=== PATIENT | female | born 1975 | race Caucasian/White ===

== ENCOUNTER 2024-03-19 14:46 | Observation (INO) ==
--- NOTE | 2024-03-19 16:15 | Emergency Department Note ---
History of Present Illness General Chief complaint: Dental/Oral Stated complaint: SWOLLEN JAW, HEADACHE Time Seen by Provider: 03/19/24 16:00 History of Present Illness Maximum Pain Intensity: 10 NAME: RAZIA RAMOS AGE: 48 SEX: F : 1975 ARRIVES VIA: Walk-In INFORMANT: Patient ED PROVIDER(S): BLESSING Valles, Zenon Pollock MD The patient is a 48-year-old female who arrives to the emergency department for evaluation of right lower tooth pain. She was seen here yesterday in the emergency department, and provided oral pain medication, as well as oral clindamycin. The patient reports a penicillin allergy. She reports the pain has worsened, and she has new swelling of her lower right side of her face. She states the pain is so severe it is not tolerable at this time. She is concerned the infection is not associated with her tooth at this time due to the severe pain and increase in swelling. She denies any difficulty with swallowing, however, no has cervical lymphadenopathy present.. She denies fever, chest pain, shortness of breath. Home Medications Medication Instructions Recorded Confirmed Type clindamycin HCl 300 mg capsule 300 mg PO TID 7 days #21 caps 03/19/24 03/19/24 Rx Allergies Allergy/AdvReac Type Severity Reaction Status Date / Time bee venom protein (honey bee) Allergy Unknown Verified 03/19/24 19:38 ketorolac [From Toradol] Allergy Hives Verified 03/19/24 19:27 latex Allergy Anaphylaxis Verified 03/19/24 19:27 Penicillins Allergy Unknown Verified 03/19/24 19:27 Past Med/Surg History Problem List (Updated 03/19/24 @ 22:59 by BLESSING Perez) Dental abscess (Acute) Cellulitis of jaw, right Abscess, jaw Pain of molar (Acute) Right facial pain (Acute) Medical History No pertinent past medical history Social History Smoking Status: Former smoker Tobacco Type: Cigarettes Preferred Language: Setswana Feels Safe at Home: Yes Physical Exam Vital Signs Vital Signs - 24 hr 03/19/24 15:03 03/19/24 17:00 Temperature 36.7 C Temperature Source Temporal Artery Scan Pulse Rate 101 H Pulse Rate [Finger] 80 Respiratory Rate 20 Respiratory Effort / Characteristics Non-Labored Spontaneous Respiratory Depth Normal Respiratory Pattern Regular Blood Pressure 140/89 Blood Pressure [Right Arm] 153/107 H Blood Pressure Mean 106 Blood Pressure Mean [Right Arm] 122 Blood Pressure Position Sitting Pulse Oximetry 97 95 Oxygen Delivery Method Room Air Room Air Sepsis Recent Fever Within 48 Hours No Sepsis New/Unexplained Change in Mental Status N/A Sepsis Action Taken by Nursing No Action Required VITALS: Vitals are noted on the nurse's note and reviewed by myself. Vital signs stable. GENERAL: 48-year-old female, in no acute distress, nondiaphoretic, well- developed well-nourished. SKIN: The skin was without rashes, erythema, edema, or bruising. HEAD: Right lower facial edema extending below the right jaw. EYES: Pupils equal round and reactive to light and accommodation. MOUTH: Mucous membranes moist. Poor dentition, pharynx without erythema or exudate. Uvula midline. Airway patent. Tongue does not deviate. Erythema/edema to the right lower abdominal below tooth number 30. NECK: Supple without nuchal rigidity. Right cervical lymphadenopathy, no thyromegaly. HEART: Regular rate and rhythm without murmurs gallops or rubs. LUNGS: Clear to auscultation bilaterally without wheezes, rales or rhonchi. No retractions or accessory muscle use. NEURO: Patient was alert and oriented to person place and time. No focal neurological deficits. Course Administered Medications Hydromorphone HCl (Hydromorphone Inj 1 Mg/Ml Syringe) 1 mg IV Q4H PRN PRN Reason: Pain(5+) Stop: 04/02/24 20:29 Last Admin: 03/19/24 20:53 Dose: 1 mg Documented By: STEPAN Discontinued Medications Hydromorphone HCl (Hydromorphone Inj 0.5 Mg/0.5 Ml Syr) 0.5 mg IV NOW STA Stop: 03/19/24 19:00 Last Admin: 03/19/24 19:23 Dose: 0.5 mg Documented By: STEPAN Clindamycin Phosphate (Cleocin/D5w) 900 mg in 50 mls @ 100 mls/hr IV NOW ONE Stop: 03/19/24 16:44 Last Infusion: 03/19/24 18:21 Dose: Infused Documented By: Admin: 03/19/24 17:14 Dose: 100 mls/hr Documented By: ESTER Lactated Ringer's (Lr) 1,000 mls @ 999 mls/hr IV .Q1H1M ONE Stop: 03/19/24 20:17 Last Infusion: 03/19/24 23:04 Dose: Infused Documented By: Admin: 03/19/24 19:36 Dose: 999 mls/hr Documented By: STEPAN Ceftriaxone Sodium (Rocephin) 2,000 mg in 50 mls @ 100 mls/hr IV NOW STA Stop: 03/19/24 19:59 Last Infusion: 03/19/24 23:04 Dose: Infused Documented By: Admin: 03/19/24 20:51 Dose: 100 mls/hr Documented By: STEPAN Acetaminophen (Ofirmev) 1,000 mg in 100 mls @ 400 mls/hr IV NOW STA Stop: 03/19/24 19:46 Last Infusion: 03/19/24 20:59 Dose: Infused Documented By: Admin: 03/19/24 20:02 Dose: 400 mls/hr Documented By: STEPAN Ioversol (Optiray 320 100ml) 92 ml IV ONCE ONE Stop: 03/19/24 17:55 Last Admin: 03/19/24 17:55 Dose: 92 ml Documented By: JT Morphine Sulfate (Morphine Sulfate 4 Mg/Ml 1 Ml Carp\Vial) 4 mg IV NOW STA Stop: 03/19/24 16:16 Last Admin: 03/19/24 16:38 Dose: 4 mg Documented By: TORRI Morphine Sulfate (Morphine Sulfate 4 Mg/Ml 1 Ml Carp\Vial) 4 mg IV NOW STA Stop: 03/19/24 17:19 Last Admin: 03/19/24 17:21 Dose: 4 mg Documented By: ESTER Morphine Sulfate (Morphine Sulfate 4 Mg/Ml 1 Ml Carp\Vial) 4 mg IV NOW STA Stop: 03/19/24 18:25 Last Admin: 03/19/24 18:44 Dose: 4 mg Documented By: ESTER Ondansetron HCl (Ondansetron Inj 2 Mg/Ml 2 Ml Vial) 4 mg IV NOW STA Stop: 03/19/24 16:16 Last Admin: 03/19/24 16:38 Dose: 4 mg Documented By: TORRI Ondansetron HCl (Ondansetron Inj 2 Mg/Ml 2 Ml Vial) 4 mg IV NOW STA Stop: 03/19/24 19:21 Last Admin: 03/19/24 19:23 Dose: 4 mg Documented By: STEPAN Ondansetron HCl (Ondansetron Inj 2 Mg/Ml 2 Ml Vial) 4 mg IV NOW STA Stop: 03/19/24 19:21 Last Admin: 03/19/24 19:21 Dose: Not Given Documented By: STEPAN Medical Decision Making Differential Diagnosis Dental caries, dental abscess, Ludwigs angina, Vincent angina, dental fracture, facial cellulitis, parotitis, osteomyelitis, sinus infection, peritonsillar abscess. Medical Records Attestation: I reviewed the patient's medical records. Home Medications Current Medication List: was personally reviewed by me Laboratory Data Attestation: I reviewed the patient's lab results. Leukocytosis 11.29, stable hemoglobin and hematocrit, no electrolyte abnormalities. 03/19/24 16:35 03/19/24 16:35 Lab Results 03/19/24 Range/Units 16:35 WBC 11.29 H (4.8-10.8) K/ul RBC 5.08 (4.20-5.40) M/uL Hgb 14.9 (12.0-16.0) g/dl Hct 45.0 (37.0-47.0) % MCV 88.6 (80.0-100.0) fL MCH 29.3 (25.0-34.0) pg MCHC 33.1 (32.0-36.0) g/dL RDW Std Deviation 42.6 (36.4-46.3) fL RDW Coeff of Reyna 13.0 (11.5-14.5) % Plt Count 261 (130-400) K/uL MPV 10.0 (9.4-12.4) fL Immature Gran % (Auto) 0.4 % Neut % (Auto) 73.1 % Lymph % (Auto) 17.1 % Kendall % (Auto) 7.7 % Eos % (Auto) 1.3 % Baso % (Auto) 0.4 % Neut # (Auto) 8.25 H (1.40-6.50) K/uL Lymph # (Auto) 1.93 (1.20-3.40) K/uL Kendall # (Auto) 0.87 H (0.11-0.59) K/uL Eos # (Auto) 0.15 (0.00-0.50) K/uL Baso # (Auto) 0.05 (0.00-0.20) K/uL Immature Gran # (Auto) 0.04 (0.01-0.20) K/uL ESR 37 H (0-20) mm/hr Sodium 137 (136-145) mmol/L Potassium 4.0 (3.5-5.1) mmol/L Chloride 106 (98-107) mmol/L Carbon Dioxide 24 (21-32) mmol/L Anion Gap 7 (3-11) BUN 13 (6-23) mg/dl Creatinine 0.73 (0.6-1.2) mg/dl Est Cr Clr Drug Dosing 102.3 ml/min Est GFR ( Amer) 112.1 ml/min Est GFR (Non-Af Amer) 96.7 ml/min BUN/Creatinine Ratio 17.8 (10-20) Glucose 97 (70-99(Fasting)) mg/dl Calcium 9.4 (8.6-10.3) mg/dl Total Bilirubin 0.7 (0.2-1.0) mg/dl AST 11 L (13-39) U/L ALT 9 (7-52) U/L Alkaline Phosphatase 69 (34-104) U/L C-Reactive Protein 0.74 H (0-0.5) mg/dl Total Protein 7.2 (6.0-8.3) gm/dl Albumin 4.1 (3.4-5.0) gm/dl Globulin 3.1 (2.5-4.0) gm/dl Albumin/Globulin Ratio 1.3 (0.9-2) Procalcitonin < 0.02 (0-0.5) ng/ml Imaging Data Radiologist's Impression: Soft Tissue Neck CT 03/19/24 16:15 CT soft tissue neck w con HISTORY: 48 years-old Female r/o abscess acute pain and swelling of the face with possible dental infection COMPARISON: None TECHNIQUE: Multiple axial CT images of the soft tissues of the neck were obtained with IV contrast. A dose lowering technique was used consistent with the principals of MARIA GUADALUPE. FINDINGS: Moderate subcutaneous edema within the right mandibular tissues centered around a 1.2 x 0.2 cm peripherally enhancing abscess abutting the right mandibular body on image 39 series 2. No drainable fluid collections. Reactive submandibular and cervical chain lymph nodes on the right measure up to 10 mm. Patent airway. Antral fat planes are symmetric and well-maintained. Normal glottis and subglottic airway. Thyroid, parotid and submandibular glands are unremarkable. The imaged intracranial structures are within normal limits. Lung apices are clear without pneumothorax. No acute fracture. Dental caries with periapical cysts. There is mild lateral cortical dehiscence of the right mandible body adjacent to the right first mandibular molar. IMPRESSION: 1. Multifocal odontogenic disease. 2. Right facial/jaw cellulitis with 1.2 cm abscess. 3. Mild reactive lymphadenopathy. ACT 112: Negative or not required by law. The above report was generated using voice recognition software. It may contain grammatical, syntax or spelling errors. Electronically signed by: Brendan Ramos M.D. 03/19/2024 6:38 PM Prescription Drug Monitoring [place] Drug Monitoring Program reviewed and no issues identified Blood Pressure Blood Pressure Findings: Normal blood pressure MDM Narrative The patient is a 48-year-old female who arrives to the emergency department for the above-stated complaint. Upon assessment the patient has significant pain, and is tearful. I do believe she has a developing abscess associated with tooth #30. A saline lock was placed, CBC, CMP were obtained which showed a slight leukocytosis. The patient was provided with 3 doses of IV morphine, 2 doses of Zofran, and 1 dose of IV Dilaudid which were unsuccessful in controlling her pain. CT imaging shows a 1.2 cm developing dental abscess. I contacted Dr. Wilkerson regarding the patient, he will evaluate the CT, and place the patient on his list for surgical intervention tomorrow. Case management was contacted to facilitate hospital admission. The patient was admitted to the [facility]. Please refer to Dr. Torres's documentation regarding further patient care. Impression & Plan Right facial pain, Dental abscess Discharge Plan Visit Data Chief Complaint: Dental/Oral Stated Complaint: SWOLLEN JAW, HEADACHE ED Provider: Zenon Pollock ED Midlevel Provider: Dori Leiva Discharge Problem: Right facial pain, Dental abscess Patient Disposition: Admitted As Inpatient Discharge Instructions Interventions: ED Discharge Assessment Last Done: 03/19/24 21:14
[2024-03-19] MEDS: MoRPHine SULFATE 4 MG/ML 1 ML CARP\\VIAL IV STA ×3 (16:38→18:44)
[2024-03-19] MEDS: ONDANSETRON INJ 2 MG/ML 2 ML VIAL IV STA ×3 (16:38→19:23)
[2024-03-19 16:49] LABS: Basophils # (auto) 0.05 K/uL (0.00-0.20); Basophils % (auto) 0.4 %; Eosinophils # (auto) 0.15 K/uL (0.00-0.50); Eosinophils % (auto) 1.3 %; Hemoglobin 14.9 g/dl (12.0-16.0); Immature Granulocytes # (auto) 0.04 K/uL (0.01-0.20); Immature Granulocytes % (auto) 0.4 %; Lymphocytes # (auto) 1.93 K/uL (1.20-3.40); Lymphocytes % (auto) 17.1 %; Mean Corpuscular Hemoglobin 29.3 pg (25.0-34.0); Mean Corpuscular Hgb Conc 33.1 g/dL (32.0-36.0); Mean Corpuscular Volume 88.6 fL (80.0-100.0); Monocytes # (auto) 0.87 K/uL (0.11-0.59); Monocytes % (auto) 7.7 %; Neutrophils # (auto) 8.25 K/uL (1.40-6.50); Neutrophils % (auto) 73.1 %; Platelet Count 261 K/uL (130-400); RDW Standard Deviation 42.6 fL (36.4-46.3); Red Blood Count 5.08 M/uL (4.20-5.40); White Blood Count 11.29 K/ul (4.8-10.8)
[2024-03-19 17:07] LABS: Albumin Globulin Ratio 1.3 (0.9-2); Albumin Level 4.1 gm/dl (3.4-5.0); BUN Creatinine Ratio 17.8 (10-20); Bilirubin,Total 0.7 mg/dl (0.2-1.0); Calcium 9.4 mg/dl (8.6-10.3); Creatinine Clr Calc Pharmacy 102.3 ml/min; Est GFR (African American) 112.1 ml/min; Est GFR (Non-African American) 96.7 ml/min; Globulin 3.1 gm/dl (2.5-4.0); Total Protein 7.2 gm/dl (6.0-8.3)
[2024-03-19] MEDS: CLINDAMYCIN/D5W 900 MG/50 ML BAG IV ONE (17:14)
[2024-03-19] MEDS: OPTIRAY 320 100ml IV ONE (17:55)
--- NOTE | 2024-03-19 18:41 | CT Scan Report ---
CT soft tissue neck w con HISTORY: 48 years-old Female r/o abscess acute pain and swelling of the face with possible dental in fection COMPARISON: None TECHNIQUE: Multiple axial CT images of the soft tissues of the neck were obtained with IV contrast. A dose lowering technique was used consistent with the principals of MARIA GUADALUPE. FINDINGS: Moderate subcutaneous edema within the right mandibular tissues centered around a 1.2 x 0.2 cm periph erally enhancing abscess abutting the right mandibular body on image 39 series 2. No drainable fluid collections. Reactive submandibular and cervical chain lymph nodes on the right measure up to 10 mm. Patent airway. Antral fat planes are symmetric and well-maintained. Normal glottis and subglottic airway. Thyroid, p arotid and submandibular glands are unremarkable. The imaged intracranial structures are within aleksandr l limits. Lung apices are clear without pneumothorax. No acute fracture. Dental caries with periapica l cysts. There is mild lateral cortical dehiscence of the right mandible body adjacent to the right f irst mandibular molar. IMPRESSION: 1. Multifocal odontogenic disease. 2. Right facial/jaw cellulitis with 1.2 cm abscess. 3. Mild reactive lymphadenopathy. ACT 112: Negative or not required by law. The above report was generated using voice recognition software. It may contain grammatical, syntax o r spelling errors. Electronically signed by: Brendan Ramos M.D. 03/19/2024 6:38 PM
--- NOTE | 2024-03-19 19:13 | History & Physical Report ---
Date of Service March 19, 2024 Assessment & Plan (1) Abscess, jaw: Plan: -Admit to the PCU on tele/pulse oximetry -Currently in significant pain but stable and without airway compromise at the time of the exam -Initially presented to the ED early this am with right lower tooth/jaw pain -Was discharged on oral clindamycin -Returned this afternoon with significant increase in swelling, pain, and poor oral intake -Soft tissue CT of the neck was read as Multifocal odontogenic disease, Right facial/jaw cellulitis with 1.2 cm abscess, and Mild reactive lymphadenopathy. -Patient is currently able to safely swallow her secretions, denies the sensation that her airway is swelling/closing, and is without stridor -S/P one dose of IV Clindamycin in the ED >Will continue with Clindamycin and add on Ceftriaxone as well -Will obtain stat blood cultures, esr, crp, and procal with her leukocytosis and progressive of her infection -Will continue with scheduled tylenol, prn ice, and PRN IV dilaudid for severe pain -Patient was instructed multiple times by the admitting team to alert her nurse if she starts to develop an inability to swallow secretions, feels as though her throat is closing, or develops respiratory distress. >The patient verbalized understanding -PRN Narcan for oversedation/respiratory depression -ENT has been consulted and is planning on taking the patient to the OR tomorrow for surgical intervention -Clear liquids until midnight then strict NPO -Will give 1L LR bolus now and start maintenance plasmalyte when NPO at midnight -AM CBC, CMP, mag, PT/INR (2) Cellulitis of jaw, right: Plan: -See jaw abscess plan Plan The patient was discussed with Dr. Torres at the time of the admission History of Present Illness Chief Complaint: Worsening tooth/jaw pain Primary Care Provider: SUSIE PCP Jami is a 48 year old female with no significant PMH who presented to the [facility] ED on 03/19/24 for a second time in the past 12 hours with complaints of progressive right lower jaw pain. She was initially seen in the [facility] ED on early this am and was prescribed PO Clindamycin. She remained stable in the ED. Labs were significant for a leukocytosis of 11 with neutrophil predominance of 8. CT soft tissue of the neck w/con was read as "1. Multifocal odontogenic disease. 2. Right facial/jaw cellulitis with 1.2 cm abscess. 3. Mild reactive ly mphadenopathy.". The patient was given a dose of IV clindamycin. The ED spoke with ENT who recommended making the patient NPO at midnight in preparation for the OR tomorrow. Prior to admission the patient was given 3 doses of 4 mg IV morphine, 0.5 mg IV Dilaudid, and one dose of IV Clindamycin. At the time of the exam the patient was sitting in bed in acute distress due to pain. She currently has significant right jaw/submandibular swelling. She states that her pain is severe. She states that the swelling has significantly progressed compared to her first ED visit this am. When asked, she confirms that she is able to swallow her secretions and denies feeling as though her throat is closing or that she is unable to breathe. She is without stridor on exam. Denies fever, chills, chest pain, SOB, cough, abd pain, nausea, vomiting, diarrhea, dysuria, hematuria, melena, LE swelling, and recent trauma. I explained that Dr. Wilkerson from ENT will see her in the am and will likely be taking her to the OR for I&D. Please refer to Dr. Hyde's attestation for any changes to the treatemnt plan Allergies Allergy/AdvReac Type Severity Reaction Status Date / Time bee venom protein (honey bee) Allergy Unknown Verified 03/20/24 13:22 ketorolac [From Toradol] Allergy Hives Verified 03/20/24 13:22 latex Allergy Anaphylaxis Verified 03/20/24 13:22 Penicillins Allergy Unknown Verified 03/20/24 13:22 Home Medications Medication Instructions Recorded Confirmed Type hydrocodone 5 mg-acetaminophen 325 1 tab PO Q4H PRN pain #14 tabs 03/21/24 Rx mg tablet Past Med/Surg History Problem List (Updated 03/21/24 @ 13:04 by Veronica Levin MD) Encounter for pre-operative examination Cellulitis of jaw, right Pain of molar (Acute) Right facial pain (Acute) Medical History (Updated 03/21/24 @ 13:04 by Veronica Levin MD) Dental abscess Abscess, jaw History of kidney infection PTSD (post-traumatic stress disorder) Depressed Heart palpitations Surgical History (Updated 03/21/24 @ 11:17 by Rosanna Baeza RN) Hx of oral surgery (03/20/24) p Right Face Incision and Drainage of submandibular right abcess(Right) - Yoandy Wilkerson DMD s Extraction of Teeth #16, 30, 31(Not Applicable) - Yoandy Wilkerson DMD History of appendectomy History of hysterectomy Social History Smoking Status: Current every day smoker Tobacco Type: Cigarettes Cigarettes Per Day: 4; Hx Alcohol Use: No Hx Substance Use: Yes Last Used Substance: Unknown Preferred Language: Lao Communication Ability: Effective Beliefs That Will Affect Care: None Current Living Situation: Other Current Living Situation Comment: Homeless custodial Feels Safe at Home: Yes Assistive Devices: None Physical Exam Physical Exam: Physical Exam: General: In acute distress due to significant pain, stated age, ill but non- toxic appearing HEENT: significant right jaw/submandibular swelling which is significantly tender to palpation, decreased ability to fully open jaw due to pain, oropharynx is patent and without unilateral deviation/swelling, patient with signs of gingivitis/swelling/inflammation of the right lower molars, no scleral icterus, pupils around round, symmetrical, and reactive to light, moist mucus membranes, poor dental hygiene, trachea midline, no thyromegaly Chest/Pulm: No respiratory distress, symmetrical chest expansion, clear breath sounds throughout Cardiac: tachycardic rate, regular rhythm, no murmurs noted Abdomen: Negative for ascites and bruising, normoactive bowel sounds, soft, non-tender to palpation throughout Musculoskeletal: Symmetrical and without signs of acute trauma, upper and lower extremities with full ROM, no atrophy, spasticity, or flaccidity Extremities: Radial, dorsalis pedis, and posterior tibial pulses are intact and symmetrical, no edema noted in the BL LE's Skin: Warm, dry, no rashes , lesions, or scars noted Neuro: Alert and oriented to person, place, month, year, and president, no focal defects, no tremors noted Psych: In acute distress due to pain but polite and cooperative during the exam Results & Data Results & Data Vital Signs (Past 12 Hours) Vital Signs Temp Pulse Pulse Resp BP BP Pulse Ox 03/19/24 17:00 80 153/107 H 95 03/19/24 15:03 36.7 C 101 H 20 140/89 97 O2 Del Method 05/19/24 17:00 Room Air 03/19/24 15:03 Room Air Laboratory Results Abnormal lab results 03/19/24 Range/Units 16:35 WBC 11.29 H (4.8-10.8) K/ul Neut # (Auto) 8.25 H (1.40-6.50) K/uL Grayson # (Auto) 0.87 H (0.11-0.59) K/uL ESR 37 H (0-20) mm/hr AST 11 L (13-39) U/L Diagnostic Findings Soft Tissue Neck CT 03/19/24 16:15 CT soft tissue neck w con HISTORY: 48 years-old Female r/o abscess acute pain and swelling of the face w ith possible dental infection COMPARISON: None TECHNIQUE: Multiple axial CT images of the soft tissues of the neck were obtained with IV contrast. A dose lowering technique was used consistent with the principals of ALARA. FINDINGS: Moderate subcutaneous edema within the right mandibular tissues centered around a 1.2 x 0.2 cm peripherally enhancing abscess abutting the right mandibular body on image 39 series 2. No drainable fluid collections. Reactive submandibular and cervical chain lymph nodes on the right measure up to 10 mm. Patent airway. Antral fat planes are symmetric and well-maintained. Normal glottis and subglottic airway. Thyroid, parotid and submandibular glands are unremarkable. The imaged intracranial structures are within normal limits. Lung apices are clear without pneumothorax. No acute fracture. Dental caries with periapical cysts. There is mild lateral cortical dehiscence of the right mandible body adjacent to the right first mandibular molar. IMPRESSION: 1. Multifocal odontogenic disease. 2. Right facial/jaw cellulitis with 1.2 cm abscess. 3. Mild reactive lymphadenopathy. ACT 112: Negative or not required by law. The above report was generated using voice recognition software. It may contain grammatical, syntax or spelling errors. Electronically signed by: Brendan Ramos M.D. 03/19/2024 6:38 PM ECG Additional Comments: Will obtain at the time of the admission Code Status & VTE Plan Code Status Full code VTE Prophylaxis Plan VTE Prophylaxis will be ordered: Yes Supervising Physician Co-Signing Physician Notes Attending addendum: I have physically seen this patient, have supervised the BRITNEY's activities, and agree with the H&P unless as otherwise noted. Assessment and Plan: Right facial jaw abscess/cellulitis- CT soft tissue of the neck 1.2 cm abscess NPO IV fluids as noted Patient able to clear secretions without a problem Ceftriaxone 2 g IV daily Clindamycin 90 mg IV every 8 hours Allergies noted to penicillin Follow blood culture and sensitivities Acetaminophen 1 g IV every 8 hours as needed for mild pain or fever Dilaudid 0.25 mg IV every 3 hours as needed for moderate to severe pain Repeat CBC with differential, CMP, magnesium and PT/INR in the a.m. Patient will be seen by [facility] Dr. Wilkerson PG Care Time/CCT Total # of Minutes Spent Total Time Spent with Patient: Total time spent is greater than 50% in coordination of care (as documented) at patient's floor/unit and/or counseling patient: [place] [address] INT INP/OBS CARE 2/55MIN Patient Type New Medical Decision Making High Complexity Diagnoses Abscess, jaw M27.2 Cellulitis of jaw, right L03.211
[2024-03-19] MEDS: HYDROmorphone INJ 0.5 MG/0.5 ML SYR IV STA ×2 (19:23→23:23)
[2024-03-19] MEDS ORDERED: Patient's ALLERGY Info needs ENTERED SCH (19:30)
[2024-03-19] MEDS ORDERED: NALOXONE HCL 0.4 MG/1 ML VIAL/CARP IV PRN (19:34)
[2024-03-19] MEDS: LACTATED RINGER'S 1,000 ML IV ONE (19:36)
[2024-03-19] MEDS ORDERED: ONDANSETRON INJ 2 MG/ML 2 ML VIAL IV PRN (19:38)
[2024-03-19] MEDS: ACETAMINOPHEN 1,000 MG/100 ML VIAL IV STA (20:02)
[2024-03-19 20:41] LABS: C Reactive Protein 0.74 mg/dl (0-0.5)
[2024-03-19] MEDS: cefTRIAXone SODIUM 2,000 MG/50 ML BAG IV STA (20:51)
[2024-03-19] MEDS: HYDROmorphone INJ 1 MG/ML SYRINGE IV PRN (20:53)
[2024-03-19] MEDS: PLASMA-LYTE A 1,000 ML IV SCH (23:23)
[2024-03-20] MEDS: CLINDAMYCIN/D5W 900 MG/50 ML BAG IV SCH (00:59)
[2024-03-20] MEDS: ACETAMINOPHEN 1,000 MG/100 ML VIAL IV SCH (03:16)
[2024-03-20 07:41] LABS: Basophils # (auto) 0.04 K/uL (0.00-0.20); Basophils % (auto) 0.5 %; Eosinophils # (auto) 0.11 K/uL (0.00-0.50); Eosinophils % (auto) 1.2 %; Hematocrit (blood only) 40.7 % (37.0-47.0); Hemoglobin 13.2 g/dl (12.0-16.0); Immature Granulocytes # (auto) 0.03 K/uL (0.01-0.20); Immature Granulocytes % (auto) 0.3 %; Lymphocytes # (auto) 1.52 K/uL (1.20-3.40); Lymphocytes % (auto) 17.1 %; Mean Corpuscular Hemoglobin 29.3 pg (25.0-34.0); Mean Corpuscular Hgb Conc 32.4 g/dL (32.0-36.0); Mean Corpuscular Volume 90.4 fL (80.0-100.0); Mean Platelet Volume 10.3 fL (9.4-12.4); Monocytes # (auto) 0.63 K/uL (0.11-0.59); Monocytes % (auto) 7.1 %; Neutrophils # (auto) 6.55 K/uL (1.40-6.50); Neutrophils % (auto) 73.8 %; Platelet Count 205 K/uL (130-400); RDW Coefficient of Variation 13.2 % (11.5-14.5); RDW Standard Deviation 43.7 fL (36.4-46.3); White Blood Count 8.88 K/ul (4.8-10.8)
[2024-03-20 07:56] LABS: Albumin Globulin Ratio 1.2 (0.9-2); Albumin Level 3.5 gm/dl (3.4-5.0); BUN Creatinine Ratio 12.2 (10-20); Bilirubin,Total 0.8 mg/dl (0.2-1.0); Calcium 8.7 mg/dl (8.6-10.3); Creatinine Clr Calc Pharmacy 101.2 ml/min; Est GFR (African American) 110.3 ml/min; Est GFR (Non-African American) 95.1 ml/min; Magnesium 1.9 mg/dl (1.7-2.4); Potassium 4.4 mmol/L (3.5-5.1); Total Protein 6.5 gm/dl (6.0-8.3)
[2024-03-20 08:07] LABS: Prothrombin Time 10.7 Seconds (9.0-12.0)
--- NOTE | 2024-03-20 08:53 | Oral/Maxillofacial Consult ---
Date of Consultation March 20, 2024 Assessment & Plan (1) Dental abscess: (2) Cellulitis of jaw, right: (3) Abscess, jaw: (4) Pain of molar: (5) Right facial pain: History of Present Illness Attending Physician: Veronica Levin MD History of Present Illness Oral Maxillofacial Surgery Exam Present Complaint: I have pain/swelling/drainage from my infected teeth. Symptoms have been ongoing for a while. The patient is a 48-year-old female who arrives to the emergency department for evaluation of right lower tooth pain. She was seen here yesterday in the emergency department, and provided oral pain medication, as well as oral clindamycin. The patient reports a penicillin allergy. She reports the pain has worsened, and she has new swelling of her lower right side of her face. She states the pain is so severe it is not tolerable at this time. She is concerned the infection is not associated with her tooth at this time due to the severe pain and increase in swelling. She denies any difficulty with swallowing, however, no has cervical lymphadenopathy present.. She denies fever, chest pain, shortness of breath. Admitted for pain and infection control Dr Wilkerson consulted Oral Exam: Finding-Grossly carious lower right first and second molars with cortical radiolucencies Imaging: CT soft tissue neck w con HISTORY: 48 years-old Female r/o abscess acute pain and swelling of the face with possible dental infection FINDINGS: Moderate subcutaneous edema within the right mandibular tissues centered around a 1.2 x 0.2 cm peripherally enhancing abscess abutting the right mandibular body on image 39 series 2. No drainable fluid collections. Reactive submandibular and cervical chain lymph nodes on the right measure up to 10 mm. Patent airway. Antral fat planes are symmetric and well-maintained. Normal glottis and subglottic airway. Thyroid, parotid and submandibular glands are unremarkable. The imaged intracranial structures are within normal limits. Lung apices are clear without pneumothorax. No acute fracture. Dental caries with periapical cysts. There is mild lateral cortical dehiscence of the right mandible body adjacent to the right first mandibular molar. IMPRESSION: 1. Multifocal odontogenic disease. 2. Right facial/jaw cellulitis with 1.2 cm abscess. 3. Mild reactive lymphadenopathy. Soft tissue: The floor of the mouth, tongue, hard/soft palate, posterior pharyngeal area all with in normal limits, no pathology or abnormal findings noted. Swelling associated with the submandibular and masseter space Swelling upper left area due to fractured tooth with local infection and pain Oral Care: Fair Occlusion: Class I TMJ exam: Due to limited opening not able to determine Periodontal exam: Inflamed gingival tissue with evidence of periodontal pathology. Head/Neck exam: Neck is supple, FROM, Able to extend and flex neck w/o difficulty, no masses, no abnormalities other then the infection causing swelling to the right submandibular area and cheek, no airway issues. Treatment Plan: I&D right submandibular abscess and extraction of 30,31 I&D of local abscess #upper left area and fractured # 16 Set up with general anesthesia in hospital due to complexity of the procedure I reviewed the treatment plan and consent with the patient. Understanding was expressed. Time was given for questions regarding the surgery, risks and post op care. Discussed alternative to treatment--procedure as planned-no other options due to decay The following teeth are decayed and fractured and removal is indicated CHERISE: Risks discussed: Bleeding,Pain,swelling,infection, dry socket, delayed healing, nerve injury to face,lips,tongue,chin area which could be permanent (rare). TMJ, jaw stiffness, change in bite (rare), ear pain (referred). Sinus problems like fistula or infection. Need to leave a small root fragment in place to avoid injury to nerve or sinus. Relationship of wisdom teeth to nerve/sinus and risk of jaw fracture. Home care reviewed: follow up care with Dr Wilkerson. diet=[id number] dental. need to establish routine dental care for treatment and prevention Discussed activity level, driving/work while on Rx pain Meds. Surgery to be set up for I&D and extractions 16,30,31 later today Allergies Allergy/AdvReac Type Severity Reaction Status Date / Time bee venom protein (honey bee) Allergy Unknown Verified 03/19/24 19:38 ketorolac [From Toradol] Allergy Hives Verified 03/19/24 19:27 latex Allergy Anaphylaxis Verified 03/19/24 19:27 Penicillins Allergy Unknown Verified 03/19/24 19:27 Home Medications Medication Instructions Recorded Confirmed Type clindamycin HCl 300 mg capsule 300 mg PO TID 7 days #21 caps 03/19/24 03/19/24 Rx Patient History Medical History No pertinent past medical history Social History Smoking Status: Current every day smoker Tobacco Type: Cigarettes Cigarettes Per Day: 4; Hx Alcohol Use: No Hx Substance Use: Yes Last Used Substance: Unknown Preferred Language: Haitian Communication Ability: Effective Beliefs That Will Affect Care: None Current Living Situation: Other Current Living Situation Comment: Homeless longterm Feels Safe at Home: Yes Safety Concerns: Feels Safe At This Time Assistive Devices: Glasses Results & Data Vital Signs (Past 12 Hours) Vital Signs Temp Pulse Pulse Pulse Resp BP BP 03/20/24 06:52 36.9 C 80 17 124/84 03/20/24 03:44 37.0 C 83 22 123/80 03/19/24 23:40 36.7 C 84 21 145/85 H 03/19/24 22:40 83 03/19/24 21:38 03/19/24 21:30 84 03/19/24 21:30 03/19/24 21:15 36.6 C 84 17 131/83 03/19/24 21:14 03/19/24 21:09 86 16 121/80 Pulse Ox Pulse Ox O2 Del Method O2 Del Method O2 Flow Rate 03/20/24 06:52 98 Nasal Cannula 2.0 03/20/24 03:44 96 Nasal Cannula 2 03/19/24 23:40 95 Room Air 03/19/24 22:40 03/19/24 21:38 96 Room Air 03/19/24 21:30 03/19/24 21:30 Room Air 03/19/24 21:15 95 Room Air 03/19/24 21:14 Room Air 03/19/24 21:09 96 Room Air PG Care Time/CCT Total # of Minutes Spent Total Time Spent with Patient: Total time spent is greater than 50% in coordination of care (as documented) at patient's floor/unit and/or counseling patient: Coding Level of Care Code 81761 Inpt Consult Level 1 Diagnoses Dental abscess K04.7 Cellulitis of jaw, right L03.211 Abscess, jaw M27.2 Pain of molar K08.89 Right facial pain R51.9
--- NOTE | 2024-03-20 09:13 | Electrocardiogram Report ---
Test Reason : Blood Pressure : / mmHG Vent. Rate : 078 BPM Atrial Rate : 078 BPM P-R Int : 138 ms QRS Dur : 078 ms QT Int : 380 ms P-R-T Axes : 038 037 025 degrees QTc Int : 433 ms Normal sinus rhythm Normal ECG No previous ECGs available Confirmed by Laurent Willams ([id number]) on 03/20/2024 9:12:59 AM Referred By: REFERRED SELF Confirmed By:Laurent Willams
[2024-03-20] MEDS ORDERED: LACTATED RINGER'S 1,000 ML IV SCH (13:00)
[2024-03-20] MEDS ORDERED: PROPOFOL IV EMULSION 10 MG/ML 20 ML VIAL IV ONE (13:12)
[2024-03-20] MEDS ORDERED: ONDANSETRON INJ 2 MG/ML 2 ML VIAL ONE (13:12)
[2024-03-20] MEDS ORDERED: fentaNYL citrate PF 100 MCG/2 ML VIAL ONE (13:12)
[2024-03-20] MEDS ORDERED: LIDOCAINE 2% 2 ML VIAL/AMP(20MG/ML) INFIL ONE (13:12)
[2024-03-20] MEDS ORDERED: DEXAMETHASONE SOD INJ 4 MG/ML VIAL ONE (13:12)
[2024-03-20] MEDS ORDERED: MIDAZOLAM HCL 1 MG/ML 2ML VIAL ONE ×2 (13:12→15:35)
--- NOTE | 2024-03-20 13:43 | Anesthesiology Consultation ---
Date of Service March 20, 2024 Assessment & Plan (1) Encounter for pre-operative examination: Chart Review Chart Review: Acceptable Risk for Surgery and Patient NOT seen in Pre Admission Testing Consults Requested none History Surgery Operation Date: 03/20/24 10:20 Proposed Procedures p Right Face Incision and Drainage - Yoandy Wilkerson DMD s Extraction of Teeth #16, 30, 31 - Yoandy Wilkerson DMD Height/Weight Height: 5 ft 6 in Weight: 85.3 kg Allergies Allergy/AdvReac Type Severity Reaction Status Date / Time bee venom protein (honey bee) Allergy Unknown Verified 03/20/24 13:22 ketorolac [From Toradol] Allergy Hives Verified 03/20/24 13:22 latex Allergy Anaphylaxis Verified 03/20/24 13:22 Penicillins Allergy Unknown Verified 03/20/24 13:22 Medications Home Medications Medication Instructions Recorded Confirmed Last Taken clindamycin HCl 300 mg capsule 300 mg PO TID 7 days #21 caps 03/19/24 03/19/24 Unknown Active Medications Generic Name Dose Route Start Last Admin Trade Name Freq PRN Reason Stop Dose Admin Hydromorphone HCl 1 mg 03/19/24 20:30 03/20/24 11:05 Hydromorphone Inj 1 Mg/Ml Syringe IV 04/02/24 20:29 1 mg Q4H PRN Administration Pain(5+) Acetaminophen 1,000 mg in 100 mls @ 400 mls/hr 03/20/24 04:00 03/20/24 12:13 Ofirmev IV 03/23/24 03:59 Infused Q8H SHAHLA Infusion Clindamycin Phosphate 900 mg in 50 mls @ 100 mls/hr 03/20/24 02:00 03/20/24 11:03 Cleocin/D5w IV 03/30/24 01:59 Infused Q8H SHAHLA Infusion Parenteral Electrolytes 1,000 mls @ 100 mls/hr 03/20/24 00:00 03/20/24 10:05 Plasma-Lyte A Ph 7.4 IV 04/19/24 00:00 100 mls/hr .Q10H SHAHLA Administration NPO Date Last Intake of Fluids: 03/19/24 Time Last Intake of Fluids: 21:00 Date Last Intake of Solids: 03/18/24 Past Medical History Medical History (Updated 03/20/24 @ 13:43 by Zac Garcia DO) Dental abscess Abscess, jaw History of kidney infection PTSD (post-traumatic stress disorder) Depressed Heart palpitations Past Surgical History Surgical History History of appendectomy History of hysterectomy Social History Smoking Status: Current every day smoker Smoking cigarettes per day: 4 Hx Alcohol Use: No Hx Substance Use: Yes substance use type: former substance user and marijuana Last Used Substance: Unknown Physical Exam Vital Signs Last Vital Signs Temp 98.4 F 03/20/24 13:18 Pulse 85 03/20/24 13:18 Resp 20 03/20/24 13:18 BP 132/79 03/20/24 13:18 Pulse Ox 96 03/20/24 13:18 O2 Del Method Room Air 03/20/24 13:18 O2 Flow Rate 2.0 03/20/24 06:52 Testing Laboratory Results 03/20/24 06:43 03/20/24 06:43 PT 10.7 Seconds (9.0-12.0) 03/20/24 06:43 INR 1.0 (0.9-1.1) 03/20/24 06:43 Electrocardiogram Date: 03/19/24 Findings: + NSR @
[2024-03-20] MEDS ORDERED: ePHEDrine sulfate 50 MG/ML AMP IV PRN (13:56)
[2024-03-20] MEDS ORDERED: fentaNYL citrate PF 100 MCG/2 ML VIAL IV PRN (13:56)
[2024-03-20] MEDS ORDERED: ATROPINE SULFATE 0.1 MG/ML 10ML SYR IV PRN (13:56)
[2024-03-20] MEDS ORDERED: ONDANSETRON INJ 2 MG/ML 2 ML VIAL IV PRN (13:56)
[2024-03-20] MEDS ORDERED: DROPERIDOL 5 MG/2 ML VIAL ONE (14:45)
[2024-03-20] MEDS: CHLORHEXIDINE GLUCONATE 0.12% 480 ML MT ONE (15:02)
[2024-03-20] MEDS ORDERED: ROCURONIUM BROMIDE 10 MG/ML 5 ML VIAL IV ONE (15:05)
[2024-03-20] MEDS ORDERED: LARYING-O-JET KIT (LTA) ONE (15:05)
[2024-03-20] MEDS ORDERED: SUGAMMADEX SODIUM 200 MG/2 ML VIAL IV ONE (15:05)
[2024-03-20] MEDS: BUPIVACAINE/EPINEPHRINE 0.5% 1:200,000 1.8 ML CARP ONE (15:24)
[2024-03-20] MEDS ORDERED: PROMETHAZINE HCL 6.25 MG in SODIUM CHLORIDE 0.9% 50 ML IV PRN (15:30)
--- NOTE | 2024-03-20 15:50 | Post Operative Brief Note ---
PG Immediate Post Op with CF Date of Surgery March 20, 2024 Pre & Post Diagnosis Operation Date: 03/20/24 10:20 Pre-Op Diagnosis: (1) Dental abscess (2) Cellulitis of jaw, right (3) Abscess, jaw (4) Pain of molar (5) Right facial pain Post-Op Diagnosis: (1) Dental abscess (2) Cellulitis of jaw, right (3) Abscess, jaw (4) Pain of molar (5) Right facial pain I identified the patient and participated in the time-out.: Yes Procedure Operation Date: 03/20/24 10:20 Actual Procedures p Right Face Incision and Drainage of submandibular right abcess(Right) - Yoandy Wilkerson DMD s Extraction of Teeth #16, 30, 31(Not Applicable) - Yoandy Wilkerson DMD Surgeon Yoandy Wilkerson DMD [employer] none Estimated Blood Loss 4 Findings Consistent with Post-Op Diagnosis acute swelling right submandibular area Specimens Specimen Description: none per surgeon Anesthesia Type General Complications none Disposition Disposition: Recovery Room
--- NOTE | 2024-03-20 16:21 | Anesthesiology Progress Note ---
Date of Service March 20, 2024 Anesthesia Post Procedure Vital Signs Vital Signs: Temp Pulse Pulse Pulse Pulse Resp BP 03/20/24 16:20 36.5 C 74 13 108/71 03/20/24 16:10 56 L 14 134/66 03/20/24 16:00 59 L 15 121/63 03/20/24 15:50 79 12 133/80 03/20/24 15:42 36.3 C L 70 10 L 117/64 03/20/24 13:18 36.9 C 85 20 132/79 03/20/24 06:52 36.9 C 80 17 124/84 03/20/24 03:44 37.0 C 83 22 123/80 03/19/24 23:40 36.7 C 84 21 145/85 H 03/19/24 22:40 83 03/19/24 21:38 03/19/24 21:30 84 03/19/24 21:30 03/19/24 21:15 36.6 C 84 17 131/83 03/19/24 21:14 03/19/24 21:09 86 16 03/19/24 20:07 73 22 03/19/24 19:34 78 03/19/24 17:00 80 BP Pulse Ox Pulse Ox O2 Del Method O2 Del Method O2 Flow Rate 03/20/24 16:20 92 Room Air 03/20/24 16:10 89 L Room Air 03/20/24 16:00 90 Room Air 03/20/24 15:50 97 Oxymask 4 03/20/24 15:42 96 Oxymask 6 03/20/24 13:18 96 Room Air 03/20/24 06:52 98 Nasal Cannula 2.0 03/20/24 03:44 96 Nasal Cannula 2 03/19/24 23:40 95 Room Air 03/19/24 22:40 03/19/24 21:38 96 Room Air 03/19/24 21:30 03/19/24 21:30 Room Air 03/19/24 21:15 95 Room Air 03/19/24 21:14 Room Air 03/19/24 21:09 121/80 96 Room Air 03/19/24 20:07 149/97 H 96 Room Air 03/19/24 19:34 03/19/24 17:00 153/107 H 95 Room Air Pain Intensity Face: Pain Intensity: 3 Transfer of Care Handoff Completed per policy Notes Mental Status: alert / awake / arousable and participated in evaluation Patient Amnestic to Procedure: Yes Nausea / Vomiting: adequately controlled Pain: adequately controlled Airway Patency, RR, SpO2: stable & adequate BP & HR: stable & adequate Hydration State: stable & adequate Anesthetic Complications: no major complications apparent
--- NOTE | 2024-03-20 17:55 | Hospitalist Progress Note ---
Date of Service March 20, 2024 Assessment & Plan (1) Abscess, jaw: Plan: P/w with right lower tooth/jaw pain and significant increase in swelling, pain, and poor oral intake Soft tissue CT of the neck was read as Multifocal odontogenic disease, Right facial/jaw cellulitis with 1.2 cm abscess, and Mild reactive lymphadenopathy. Continue on Clindamycin and Ceftriaxone blood cultures NGTD, esr, crp minimally elevated, and procal neg Leukocytosis resolved, afebrile now s/p I&D and tooth extraction x 3 with OMFS-appreciate management Continue scheduled tylenol, prn ice, and PRN IV dilaudid for severe pain Adv diet to clears for this evening, dc IVFs Follow CBC, BMP in AM (2) Cellulitis of jaw, right: Plan: as above Plan Dispo-continued stay through the night, likely dc to home tomorrow Admission and Anticipated Discharge Date Admission Date: March 19, 2024 Subjective Just returned from OR, has some pain in mouth and is spitting out blood. Otherwise no complaints and wants to eat. Tele with NSR, normal rates Physical Exam Constitutional: WD/WN, vitals as above ENMT: right neck and jaw with edema, no erythema, some bloody drainage in mouth Respiratory: normal respiratory effort, lungs clear to auscultation Cardiovascular: RRR, no murmur, no edema Results & Data Results & Data Vital Signs (Past 12 Hours) Vital Signs Temp Pulse Pulse Pulse Resp BP Pulse Ox 03/20/24 16:20 36.5 C 74 13 108/71 92 03/20/24 16:10 56 L 14 134/66 89 L 03/20/24 16:00 59 L 15 121/63 90 03/20/24 15:50 79 12 133/80 97 03/20/24 15:42 36.3 C L 70 10 L 117/64 96 03/20/24 13:18 36.9 C 85 20 132/79 96 03/20/24 06:52 36.9 C 80 17 124/84 98 O2 Del Method O2 Flow Rate 03/20/24 16:20 Room Air 03/20/24 16:10 Room Air 03/20/24 16:00 Room Air 03/20/24 15:50 Oxymask 4 03/20/24 15:42 Oxymask 6 03/20/24 13:18 Room Air 03/20/24 06:52 Nasal Cannula 2.0 Laboratory Results CBC, BMP, blood cxs reviewed PG Care Time/CCT Total # of Minutes Spent Total Time Spent with Patient: Total time spent is greater than 50% in coordination of care (as documented) at patient's floor/unit and/or counseling patient: Coding Level of Care Code 41963 SUB INP/OBS CARE 2/35MIN Diagnoses Abscess, jaw M27.2 Cellulitis of jaw, right L03.211
[2024-03-20] MEDS: cefTRIAXone SODIUM 2,000 MG/50 ML BAG IV SCH (20:02)
[2024-03-20] MEDS: COUGH DROP (SUGAR FREE) LOZ 24 LOZ/1 BOX BUCCAL STA (22:43)
[2024-03-21 07:27] LABS: Basophils # (auto) 0.02 K/uL (0.00-0.20); Basophils % (auto) 0.2 %; Eosinophils # (auto) 0.01 K/uL (0.00-0.50); Eosinophils % (auto) 0.1 %; Hematocrit (blood only) 39.7 % (37.0-47.0); Hemoglobin 13.1 g/dl (12.0-16.0); Immature Granulocytes # (auto) 0.07 K/uL (0.01-0.20); Immature Granulocytes % (auto) 0.6 %; Lymphocytes % (auto) 9.4 %; Mean Corpuscular Hemoglobin 29.4 pg (25.0-34.0); Mean Corpuscular Volume 89.2 fL (80.0-100.0); Mean Platelet Volume 10.2 fL (9.4-12.4); Monocytes # (auto) 0.77 K/uL (0.11-0.59); Monocytes % (auto) 6.6 %; Neutrophils # (auto) 9.71 K/uL (1.40-6.50); Neutrophils % (auto) 83.1 %; Platelet Count 262 K/uL (130-400); RDW Coefficient of Variation 12.8 % (11.5-14.5); RDW Standard Deviation 42.3 fL (36.4-46.3); Red Blood Count 4.45 M/uL (4.20-5.40); White Blood Count 11.68 K/ul (4.8-10.8)
[2024-03-21 07:49] LABS: BUN Creatinine Ratio 11.4 (10-20); Calcium 8.7 mg/dl (8.6-10.3); Creatinine Clr Calc Pharmacy 108.1 ml/min; Est GFR (African American) 117.9 ml/min; Est GFR (Non-African American) 101.7 ml/min; Potassium 4.1 mmol/L (3.5-5.1)
--- NOTE | 2024-03-21 12:52 | Oral/Maxillofacial Progress Nt ---
Date of Service March 21, 2024 Assessment & Plan Admission and Anticipated Discharge Date Admission Date: March 19, 2024 Subjective Post Op infection evaluation 24 hours The infected area is responding very well. Swelling is gone and the tissue is almost back to normal in size and texture. No further drainage is noted. Infection has responded very well to the antibiotics, extractions and the I and D. I requested that the patient continue with massage, heat and wound care. At this time the area is well healed and responded well to treatment, no further treatment needed. Rx Clindamycin, Vicodin and Peridex RTC as needed. OK for discharge Results & Data Vital Signs (Past 12 Hours) Vital Signs Temp Pulse Pulse Resp BP Pulse Ox O2 Del Method 03/21/24 11:11 36.8 C 76 17 110/61 97 Room Air 03/21/24 08:00 67 03/21/24 08:00 Room Air 03/21/24 07:09 36.7 C 72 17 120/72 98 Room Air 03/21/24 03:42 36.9 C 86 14 109/63 95 Room Air PG Care Time/CCT Total # of Minutes Spent Total Time Spent with Patient: Total time spent is greater than 50% in coordination of care (as documented) at patient's floor/unit and/or counseling patient: Coding Level of Care Code None
--- NOTE | 2024-03-21 13:09 | Discharge Summary ---
Discharge Summary Date of Service March 21, 2024 Notes For Next Care Provider Medication Changes From Visit Added hydrocodone/APAP prn Added clindamycin 300mg po tid x 7 days Admission HPI Per Admitting Provider Jami is a 48 year old female with no significant PMH who presented to the [facility] ED on 03/19/24 for a second time in the past 12 hours with complaints of progressive right lower jaw pain. She was initially seen in the [facility] ED on early this am and was prescribed PO Clindamycin. She remained stable in the ED. Labs were significant for a leukocytosis of 11 with neutrophil predominance of 8. CT soft tissue of the neck w/con was read as "1. Multifocal odontogenic disease. 2. Right facial/jaw cellulitis with 1.2 cm abscess. 3. Mild reactive lymphadenopathy.". The patient was given a dose of IV clindamycin. The ED spoke with ENT who recommended making the patient NPO at midnight in preparation for the OR tomorrow. Prior to admission the patient was given 3 doses of 4 mg IV morphine, 0.5 mg IV Dilaudid, and one dose of IV Clindamycin. At the time of the exam the patient was sitting in bed in acute distress due to pain. She currently has significant right jaw/submandibular swelling. She states that her pain is severe. She states that the swelling has significantly progressed compared to her first ED visit this am. When asked, she confirms that she is able to swallow her secretions and denies feeling as though her throat is closing or that she is unable to breathe. She is without stridor on exam. Denies fever, chills, chest pain, SOB, cough, abd pain, nausea, vomiting, diarrhea, dysuria, hematuria, melena, LE swelling, and recent trauma. I explained that Dr. Wilkerson from ENT will see her in the am and will likely be taking her to the OR for I&D. Please refer to Dr. Hyde's attestation for any changes to the treatemnt plan Principal Dx & Hospital Course #1 = Principal Diagnosis (1) Abscess, jaw: P/w with right lower tooth/jaw pain and significant increase in swelling, pain, and poor oral intake Soft tissue CT of the neck was read as Multifocal odontogenic disease, Right facial/jaw cellulitis with 1.2 cm abscess, and Mild reactive lymphadenopathy. Received Clindamycin and Ceftriaxone while here, can send home with po clindamycin blood cultures NGTD, esr, crp minimally elevated, and procal neg Leukocytosis resolved, afebrile now s/p I&D and tooth extraction x 3 with OMFS-appreciate management Continue tylenol, prn ice, and PRN hydrocodone for severe pain dc to home, f/u with OMFS and dentist after discharge (2) Cellulitis of jaw, right: as above Plan [facility]po[facility], will arrange new PCP for her as she is new to the area Discharge Exam Constitutional WD/WN, vitals as above ENMT OP clear, some mild erythema and edema right side of jaw and neck, improved from previous Respiratory normal respiratory effort, lungs clear to auscultation Cardiovascular RRR, no murmur, no edema Updated Medication List Medication Instructions Recorded Confirmed Type clindamycin HCl 300 mg capsule 300 mg PO TID 7 days #21 caps 03/19/24 03/19/24 Rx hydrocodone 5 mg-acetaminophen 325 1 tab PO Q4H PRN pain #14 tabs 03/21/24 Rx mg tablet Hospital Stay Data Consultations 03/19/24 19:08 ED Decision to Admit Stat 03/19/24 19:36 Consult Otolaryngology (Head and Neck) Routine Procedures Performed Operation Date: 03/20/24 10:20 Actual Procedures p Right Face Incision and Drainage of submandibular right abcess(Right) - Yoandy Wilkerson DMD s Extraction of Teeth #16, 30, 31(Not Applicable) - Yoandy Wilkerson DMD Diagnostic Imagining Performed 03/19/24 16:15 CT neck soft tissues [CT soft tissue neck w con] Stat Pending Results Patient Have Any Pending Studies at Discharge: No Discharge Instructions Given to Patient (Per Discharging Provider) ADDITIONAL ACTIVITY RECOMMENDATIONS: * [place] teeth after every meal. It is very important to keep your mouth clean to prevent infection. * Starting tonight rinse with the Peridex as directed then 2 x a day * it is very important to keep well hydrated, this prevents fever and possible dry socket pain SPECIAL CARE INSTRUCTIONS: *It is not uncommon that between day 2-4 that your swelling will be at its worst this is very normal, do not be alarmed. * Keep ice on the side of your face for the next 24 to 36 hours. This will help keep the swelling down. * Tomorrow start rinsing your mouth with 1/2 teaspoon salt in 8 ounces warm water. This rinse should be used every 4-6 hours. * You may experience slight nausea. To prevent this, never take your medication on an empty stomach. If nauseated, take small sips of lizbeth tomás until you feel better; then you may start on applesauce and toast. * Some swelling is common. It should gradually decrease within 4-5 days. * A certain amount of bleeding is to be expected. It is often possible to control mild oozing by placing folded gauze over the area and biting down for 30 minutes. If you are unable to control excessive bleeding, call Dr Wilkerson at [phone] * You may experience some discomfort for a few days. If pain or swelling increases, Call Dr Wilkerson * Return to the office for a follow up check up on: Call for a follow up appointment in early April * office address--[facility] [address]. phone # [phone] Total Time Total Time Spent Total Time Spent (In Minutes): 35 min Total Time Includes: Examination of the Patient, Discharge Planning, Medication Reconciliation and Communication With Other Providers (Dr. Wilkerson) Coding Level of Care Code 96118 INP/OBS DISCH >30 MIN Diagnoses Abscess, jaw M27.2 Cellulitis of jaw, right L03.211
--- NOTE | 2024-03-22 23:00 | Operative Report ---
[facility] Post Operative Report Pre & Post Diagnosis Operation Date: 03/20/24 10:20 Pre-Op Diagnosis: (1) Dental abscess (2) Cellulitis of jaw, right (3) Abscess, jaw (4) Pain of molar (5) Right facial pain Post-Op Diagnosis: (1) Dental abscess (2) Cellulitis of jaw, right (3) Abscess, jaw (4) Pain of molar (5) Right facial pain I identified the patient and participated in the time-out.: Yes Procedure Operation Date: 03/20/24 10:20 Actual Procedures p Right Face Incision and Drainage of submandibular right abcess(Right) - Yoandy Wilkerson DMD s Extraction of Teeth #16, 30, 31(Not Applicable) - Yoandy Wilkerson DMD Surgeon Yoandy Wilkerson DMD Slip Presser none Estimated Blood Loss 4 Findings Consistent with Post-Op Diagnosis Specimens none Anesthesia Type General Complications none Disposition Disposition: Recovery Room Indications acute facial infection Description of Procedure p Incision and Drainage left maxillary vestibule and infraorbital space abscess; - Yoandy Wilkerson DMD p Incision and Drainage Submandibular Abscess; Removal of Tooth #30 and 31 (Not Applicable) - Yoandy Wilkerson DMD ICD 10 K12.2 , L03.211 CPT 82875 I & D of deep subcutaneous abscess of the right submandibular and vestibular spaces D7210 for teeth 16,30 and 31 Once cleared for surgery general anesthesia was achieved, the eyes were protected by the anesthesia dept criteria. A time out was take for patient ID, antibiotics, equipment and position verification once all agreed the procedure began. Local anesthesia using Marcaine with a vasoconstrictor ( 1.8 ml per site) given into left posterior maxilla and right interalveolar nerve A throat pack was placed after the oral cavity was irrigated with saline. Once a surgical level of anesthesia was obtained and the local anesthesia was given time for the blocks the surgery was started. I turned my attention to the infection which was located in the in the left cheek,left vestibule, left tuberosity area, Infraorbital fossa area Incision and Drainage Upper left Using a 15 blade an incision was made in the posterior aspect of the vestibular area upper left side. Once the incision was made a lot of pus extruded from the site. A curved hemostat was carefully placed superior into the infected space to drain the infraorbital space. To gain access to the pocket of pus in the cheek another incision was made in the vestibule. This allowed further drainage to escape. I palpated the face and cheek area and no further drainage was expressed. The area was irrigated with at least 100 ml of NS solution. Upper extraction of roots of # 16 (D7210 x 1) The full thick Muco-periosteal flap was made on from the tuberosity to distal of # 15. The flap was reflected to expose the the subperiosteal space the bone adjacent to retained roots of # 16. The rongeur was used to remove bone, the root was removed with a 301 elevator and dental upper forceps ,the sinus was intact, The granulation tissue at the apex was curetted. The site was closed with a 2-0 Chromic suture Incision and Drainage lower right submandibular space abscess Using a 15 blade an incision was made lateral to the alveolar ridge and medial the vestibular mucosa. Once the incision was made a lot of pus extruded from the site. This drainage was cultured for anaerobic and aerobic bacteria. A curved hemostat was carefully placed into the infected space along the lateral side of the lower jaw and into the submandibular space. Some further drainage was now allowed to escape. I palpated the chin and submental area and no further drainage was expressed. The area was irrigated with at least 100 ml of NS solution. Lower # 30 and 31 (D7210 x 2) The full thick Muco-periosteal flap was made on the facial aspect from the retromolar pad to area # 28. The flap was reflected to expose the the subperiosteal space the bone adjacent to teeth 30 and 31. The rongeur was used to remove bone, the tooth was removed with a 301 elevator and cow horn forceps , the mental nerve was intact, there was a large amount of granulation tissue on the apex and some more pus that was expressed. The granulation tissue at the apex was curetted. The site was closed with a 2-0 Chromic suture. I inspected the sites to insure all bleeding was controlled. I removed the throat pack and suctioned the throat. A Oral Gestic tube was placed Bilateral gauze pressure dressings were placed. All instrument and sponge count was correct. The patient was allowed to awake from the anesthesia. Once full awake the anesthesia tube was removed and the patient was taken to the recovery room with all vital sign stable. The patient tolerated the surgery very well. I will follow the patient in my office, Rx and instructions will be given upon discharge. I attest to the content of the Intraoperative Record and any orders documented therein. Any exceptions are noted below.
== END 2024-03-21 14:20 | disposition home or self-care (01) ==
LOC: ED 14:46 → 2S 19:18 → INTOOBSV 19:18 → SUATTDRO 19:18 → 2S 21:14